=== PATIENT | female | born 1930 | race Caucasian/White ===

== ENCOUNTER → 2016-04-22 | Outpatient (CLI) | payer MEDICARE | LOC: RAD 12:40 | PROVIDERS: ATTEND Family Medicine | DX: G45.9 Transient cerebral ischemic attack, unspecified (principal); R47.81 Slurred speech | CPT/HCPCS: 70544; 70551 ==

== ENCOUNTER → 2016-06-10 | Outpatient (CLI) | payer MEDICARE ==
--- NOTE | 2016-06-10 21:16 | XCELERA REPORT ---
[address] [address] Transthoracic Echocardiogram Report Name: RAINA CASPER Age: 86 yrs Gender: Female : 1930 Patient Status: Outpatient Patient Location: Study Date: 06/10/2016 11:13 AM Height: 62 in Weight: 132 lb BSA: 1.6 m2 Reason For Study: HTN I10 Ordering Physician: BIJAL PEREZ Performed By: Remi Collier Interpretation Summary Poor study, no PLAX view to assess IVS and PW. No LVH, but hyperdynamic LV with no LV diastolic dysfunction. Incomplete LV segmental analysis. Nonstenotic calcific aortic valvular disease. No AR. Mild mitral annular calcification, no MS or MVP, and only trace/mild MR with no LA enlargement .RH appears normal, although RVSP is 31-36 mm Hg representing mild pulm hypertension. MMode/2D Measurements \T\ Calculations IVSd: 0.91 cm LVIDd: 4.9 cm FS: 37.9 % Ao root diam: 2.9 cm LVIDs: 3.0 cm EDV(Teich): 111.6 ml LVPWd: 0.89 cm ESV(Teich): 35.8 ml Ao root area: 6.5 cm2 EF(Teich): 67.9 % LA dimension: 3.3 cm Doppler Measurements \T\ Calculations MV E max pj: MV P1/2t max pj: Ao V2 max: LV V1 max P.2 cm/sec 83.9 cm/sec 150.2 cm/sec 4.6 mmHg MV A max pj: MV P1/2t: 66.9 msec Ao max PG: LV V1 max: 119.0 cm/sec 9.0 mmHg 107.5 cm/sec MV E/A: 0.73 MVA(P1/2t): 3.3 cm2 MV dec slope: 367.5 cm/sec2 MV dec time: 0.24 sec PA V2 max: PI end-d pj: TR max pj: RAP systole: 119.5 cm/sec 119.5 cm/sec 254.8 cm/sec 10.0 mmHg PA max PG: TR max P.7 mmHg 26.0 mmHg RVSP(TR): 36.0 mmHg Left Ventricle The left ventricle is normal in size. There is normal left ventricular wall thickness. The left ventricular ejection fraction is normal. LV EF is 70%. Doppler measurements suggest impaired left ventricular relaxation, which is associated with grade I/IV or mild diastolic dysfunction. Regional wall motion abnormalities cannot be excluded due to limited visualization. There is no thrombus. Right Ventricle The right ventricle is grossly normal size. Atria The right atrium is normal in size. The left atrial size is normal. The interatrial septum is intact with no evidence for an atrial septal defect. Mitral Valve There is mild mitral annular calcification. The mitral valve is grossly normal. There is no evidence of mitral valve prolapse. There is no mitral valve stenosis. There is a trace amount of mitral regurgitation. Aortic Valve The aortic valve is not well visualized secondary to technical limitations. The aortic valve is sclerotic and shows some degree of functional abnormality. Cannot exclude aortic valvular vegetation. There is no aortic valve stenosis. No aortic regurgitation is present. Tricuspid Valve The tricuspid valve is not well visualized secondary to technical limitations. There is a trace to mild amount of tricuspid regurgitation. Right ventricular systolic pressure is estimated to be elevated at 30- 40mmHg. Pulmonic Valve The pulmonic valve is not well visualized. There is a mild amount of pulmonic regurgitation. Great Vessels The aortic root is not well visualized. Effusions There is no pericardial effusion. I WMSI = 1.00 % Normal = 100 Segments Size X - Cannot 1 - Normal 2 - 3 - Akinetic4 - 1-2 small Interpret Hypokinetic Dyskinetic 3-5 moderate 5 - 6-14 large Aneurysmal 15-16 diffuse : BIJAL PEREZ > Amarjit Gonzalez
== END ==
LOC: SP 10:39
PROVIDERS: ATTEND Family Medicine
DX: I10 Essential (primary) hypertension (principal)
CPT/HCPCS: 93306